=== PATIENT | male | born 1985 | race Caucasian/White ===

== ENCOUNTER 2019-01-23 05:15 | Inpatient (IN) ==
[2019-01-23] MEDS ORDERED: ALBUT/IPRATROP 3MG/0.5MG NEB 3 ML VIAL NEB ONE ×2 (05:35→05:36)
[2019-01-23] MEDS ORDERED: methylPREDNISolone 125 MG/2 ML VIAL IV STA (05:36)
[2019-01-23] MEDS ORDERED: MAGNESIUM SULFATE 1GM / D5W BAG IV ONE (06:01)
--- NOTE | 2019-01-23 06:15 | XRay Report ---
XR chest 1V portable CLINICAL HISTORY: asthma attack dyspnea COMPARISON STUDY: No previous studies for comparison. FINDINGS: The bones soft tissues and hemidiaphragms are normal. The cardiomediastinal silhouette is n ormal. The lungs are clear. The pulmonary vasculature is normal. IMPRESSION: Negative chest. The above report was generated using voice recognition software. It may contain grammatical, syntax or spelling errors. Electronically signed by: Jay Montes M.D. 01/23/2019 6:14 AM
[2019-01-23 06:37] LABS: Basophils # (auto) 0.02 K/uL (0-0.2); Basophils % (auto) 0.1 %; Eosinophils # (auto) 1.45 K/uL (0-0.5); Eosinophils % (auto) 10.2 %; Hematocrit (blood only) 44.8 % (42-52); Hemoglobin 15.9 g/dL (14.0-18.0); Immature Granulocytes # (auto) 0.05 K/uL (0.00-0.02); Immature Granulocytes % (auto) 0.4 %; Lymphocytes # (auto) 2.78 K/uL (1.2-3.4); Lymphocytes % (auto) 19.6 %; Mean Corpuscular Hgb Conc 35.5 g/dL (32-36); Mean Corpuscular Volume 87.8 fL (80-100); Mean Platelet Volume 9.9 fL (7.4-10.4); Monocytes # (auto) 1.07 K/uL (0.11-0.59); Monocytes % (auto) 7.6 %; Neutrophils # (auto) 8.78 K/uL (1.4-6.5); Neutrophils % (auto) 62.1 %; Platelet Count 240 K/uL (130-400); RDW Coefficient of Variation 13.5 % (11.5-14.5); RDW Standard Deviation 43.8 fL (36.4-46.3); White Blood Count 14.15 K/uL (4.8-10.8)
[2019-01-23 06:45] LABS: BUN Creatinine Ratio 18.9 (10-20); Calcium 8.7 mg/dl (8.5-10.1); Creatinine Clr Calc Pharmacy 121.5 ml/min; Est GFR (Non-African American) 117.4; Potassium 4.4 mmol/L (3.5-5.1)
--- NOTE | 2019-01-23 07:02 | Emergency Department Note ---
Entered by Missy Bello acting as a scribe for Felipa Melchor DO History of Present Illness General Chief complaint: Asthma Stated complaint: ASTHMA ATTACK Time Seen by Provider: 01/23/19 05:21 Source: patient Limitations: no limitations History of Present Illness Onset (ago): hour(s) 6 Location: chest Severity: similar to prior episodes Pain Consistency: + constant Maximum Pain Intensity: 0 Quality: + other (difficulty breathing, wheezing) Relieved By: + none Associated symptoms: no fever/chills The patient is a 33 year old male who presents to the ED complaining of constant difficulty breathing that began last evening around 2300. He reports that he was doing well throughout the day yesterday, but he began wheezing in the evening. The patient states that this is similar to previous episodes of asthma attacks. He denies any fevers or chills. The patient notes that he used a nebulizer and inhaler [employer], but neither provided significant relief. He reports that he has a history of asthma, stating that he has had it since he was a child. The patient notes that he has been intubated once within the past year, ventilated, and hospitalized about 2 months ago for asthma exacerbation. He states that he's been using Claritin and nasal spray to help with the symptoms. The patient denies taking any steroids recently. He denies any other health problems. Home Medications Home Medications Medication Instructions Recorded Confirmed Type albuterol sulfate 1 puff INHALATION Q6H PRN 01/23/19 01/23/19 History Allergies Allergy/AdvReac Type Severity Reaction Status Date / Time No Known Allergies Allergy Unverified 01/23/19 05:31 Past Med/Surg History Medical History Asthma Asthma exacerbation Social History Feels Safe at Home: Yes Smoking Status: Current every day smoker Review of Systems See HPI for pertinent positives & negatives. and A total of 10 systems reviewed and were otherwise negative Physical Exam Vital Signs Vital Signs - 24 hr 01/23/19 05:20 01/23/19 05:25 01/23/19 05:31 Temperature 36.6 C Temperature Source Oral Sepsis Recent Fever Within 48 Hours No Sepsis Action Taken by Nursing No Action Required Pulse Rate 105 H 99 H 104 H Pulse Rate [Right Finger] Pulse Rate from SpO2 Sensor 104 H Respiratory Rate 24 19 19 Respiratory Effort / Characteristics Spontaneous Accessory Muscle Use Short of Breath SOB on Exertion Blood Pressure 131/90 129/95 132/81 Blood Pressure Mean 103 106 98 Blood Pressure Position Sitting Pulse Oximetry 92 95 94 Oxygen Delivery Method Room Air Room Air Nebulizer Oxygen Flow Rate 7 01/23/19 05:37 01/23/19 06:01 01/23/19 06:10 Temperature Temperature Source Sepsis Recent Fever Within 48 Hours Sepsis Action Taken by Nursing Pulse Rate 106 H 133 H Pulse Rate [Right Finger] 103 H Pulse Rate from SpO2 Sensor 109 H 132 H Respiratory Rate 15 19 24 Respiratory Effort / Characteristics Spontaneous Blood Pressure 142/101 H Blood Pressure Mean 114 Blood Pressure Position Pulse Oximetry 97 99 99 Oxygen Delivery Method Room Air Nebulizer Oxygen Flow Rate 7 01/23/19 06:31 Temperature Temperature Source Sepsis Recent Fever Within 48 Hours Sepsis Action Taken by Nursing Pulse Rate 98 H Pulse Rate [Right Finger] Pulse Rate from SpO2 Sensor 99 H Respiratory Rate 21 Respiratory Effort / Characteristics Blood Pressure 114/78 Blood Pressure Mean 90 Blood Pressure Position Pulse Oximetry 98 Oxygen Delivery Method Nebulizer Oxygen Flow Rate 7 HEENT: Head - normocephalic and atraumatic Pupils are equal, round, and reactive to light. Extraocular eye muscles are intact, and sclera are anicteric. Nose - moist nasal mucosa without discharge. Mouth - moist buccal mucosa. Oropharynx is nonerythematous and there is no tonsillar exudate or edema noted. Neck: Supple; no cervical lymphadenopathy or nuchal rigidity Heart: Tachycardic rate and regular rhythm. There is a normal S1 and S2 with no murmurs, clicks, or gallops appreciated. Lungs: Diffuse inspiratory and expiratory wheezes. Abdomen: Soft, completely nontender, nondistended, with good bowel sounds. There are no palpable pulsatile masses or hepatosplenomegaly. There is no guarding, rigidity, or rebound noted. Extremities: No evidence of cyanosis, clubbing, or edema. There are easily palpable peripheral pulses. Skin: warm and dry with good turgor and no rashes. Course 0531: The patient was evaluated in room A03. A complete history and physical exam was performed. An IV lock was initiated and labs were drawn as above. The patient was observed on the cardiac specialist and pulse oximeter. 0535: Duoneb 12 ml NEB 0536: Solumedrol 125 mg IV. A portable chest x-ray was obtained. 0559: I reevaluated the patient. He was diaphoretic and in respiratory distress. 0601: Magnesium Sulfate/ D5w 2 gm IV 0616: I checked on the patient, and he looked slightly better. His oxygen saturation was 98%. 0634: I spoke with Dr. Stark, [facility] brew house supervisor, about the patient's case. 0639: I spoke with Dr. Rees, [facility] hospitalist, about the patients case. He will further evaluate the patient. Consultations Consultation #1: I spoke with Dr. Stark, [facility] brew house supervisor, about the patient's case. Time: 06:34 Consultation #2: I spoke with Dr. Rees, [facility] hospitalist, about the patients case. He will further evaluate the patient. Time: 06:39 Administered Medications Discontinued Medications Albuterol (Duoneb) 12 ml NEB ONE ONE Stop: 01/23/19 05:36 Last Admin: 01/23/19 05:36 Dose: 12 ml Documented by: [id number] Albuterol (Duoneb) 12 ml NEB ONE ONE Stop: 01/23/19 05:37 Last Admin: 01/23/19 05:43 Dose: Not Given Documented by: [id number] Magnesium Sulfate/Dextrose (Magnesium Sulfate / D5w) Confirm Administered Dose 2 gm IV .STK-MED ONE Stop: 01/23/19 06:02 Last Admin: 01/23/19 06:22 Dose: 2 gm Documented by: [id number] Methylprednisolone (Solumedrol) 125 mg IV NOW STA Stop: 01/23/19 05:37 Last Admin: 01/23/19 05:39 Dose: 125 mg Documented by: [id number] Medical Decision Making Differential Diagnosis The differential diagnosis includes: asthma exacerbation, bronchitis, pneumonia, and seasonal allergies. Medical Records Attestation: I reviewed the patient's medical records. Home Medications Current Medication List: was personally reviewed by me Laboratory Data Result diagrams: 01/23/19 05:30 01/23/19 05:30 Lab Results 01/23/19 01/23/19 Range/Units 05:30 05:30 WBC 14.15 H (4.8-10.8) K/uL RBC 5.10 (4.7-6.1) M/uL Hgb 15.9 (14.0-18.0) g/dL Hct 44.8 (42-52) % MCV 87.8 (80-100) fL MCH 31.2 (25-34) pg MCHC 35.5 (32-36) g/dL RDW Std Deviation 43.8 (36.4-46.3) fL RDW Coeff of Martha 13.5 (11.5-14.5) % Plt Count 240 (130-400) K/uL MPV 9.9 (7.4-10.4) fL Immature Gran % (Auto) 0.4 % Neut % (Auto) 62.1 % Lymph % (Auto) 19.6 % Metcalfe % (Auto) 7.6 % Eos % (Auto) 10.2 % Baso % (Auto) 0.1 % Immature Gran # (Auto) 0.05 H (0.00-0.02) K/uL Neut # (Auto) 8.78 H (1.4-6.5) K/uL Lymph # (Auto) 2.78 (1.2-3.4) K/uL Metcalfe # (Auto) 1.07 H (0.11-0.59) K/uL Eos # (Auto) 1.45 H (0-0.5) K/uL Baso # (Auto) 0.02 (0-0.2) K/uL Sodium 140 (136-145) mmol/L Potassium 4.4 (3.5-5.1) mmol/L Chloride 107 (98-107) mmol/L Carbon Dioxide 28 (21-32) mmol/L Anion Gap 5.0 (3-11) BUN 15 (7-18) mg/dl Creatinine 0.80 (0.6-1.4) mg/dl Est Cr Clr Drug Dosing 121.5 ml/min Est GFR ( Amer) 136.0 Est GFR (Non-Af Amer) 117.4 BUN/Creatinine Ratio 18.9 (10-20) Glucose 100 H (70-99) mg/dl Calcium 8.7 (8.5-10.1) mg/dl Imaging Data Attestation: I personally reviewed and interpreted this imaging study as foll ows: My Impression: XR CHEST 1V: No obvious pneumothorax. Narrow mediastinum. No pulmonary infiltrates. Blood Pressure Blood Pressure Findings: Elevated blood pressure Blood Pressure Disposition: further management by hospitalist EFREN Narrative The patient is a 33 year old male who presents to the ED complaining of difficulty breathing that began last evening around 2300. The patient has a long history of asthma with 3 previous intubations and ICU stays at other hospitals. The patient believes that the pollen/seasonal allergies may have triggered this episode. He tried using his nebulizer and inhalers at home with no relief. Upon presentation, O2 saturations are stable but the patient's respiratory rate was near 60. He had severe in-store next Tory wheezing. He did get some relief with a DuoNeb and solu Medrol. He then became increasingly short of breath again and was given 2 g of IV magnesium which did seem to help his symptoms. Chest x-ray was performed which showed no evidence of pneumothorax or other pulmonary infiltrates. I discussed the case with the brew house supervisor as well as the hospitalist and they will evaluate the patient for further care. Impression & Plan Asthmaticus, status Critical Care Time I have personally spent 60 minutes of critical care time in the direct management of this patient. This includes bedside care, interpretation of diagnostic studies, and testing, discussion with consultants, patient, and family members, and other required patient management activities. This 60 minutes is in excess of all separately billable procedures. Critical Care Time: Yes Total Critical Care Time: 60 Discharge Plan Visit Data Chief Complaint: Asthma Stated Complaint: ASTHMA ATTACK ED Provider: Felipa Melchor Discharge Problem: Asthmaticus, status Patient Disposition: Being Evaluated by Hospitalist Forms Stand Alone Forms: My [facility] [employer] Prescriptions Prescriptions: No Action albuterol sulfate 90 mcg/actuation Hfa Aerosol Inhaler 1 puff INHALATION Q6H PRN (Reason: asthma) RF: 0 Referrals Referrals: PCP,NO [Primary Care Provider] - Discharge Problem: Asthmaticus, status Qualifiers: Asthma severity: unspecified severity Asthma persistence: unspecified Qualified Code(s): J45.902 - Unspecified asthma with status asthmaticus The scribe's documentation has been prepared under my direction and personally reviewed by me in its entirety. I confirm that the note above accurately reflects all work, treatment, procedures, and medical decision making performed by me.
--- NOTE | 2019-01-23 07:14 | History & Physical Report ---
Date of Service January 23, 2019 Assessment & Plan (1) Admitted to intensive care unit: Patient is admitted to the intensive care unit with status asthmaticus, history of [address] Stark is consulted. Present on Admission?: Yes (2) Asthmaticus, status: Patient received Solu-Medrol 25 mg IV in the ED, magnesium sulfate 2 g IV, and a continuous DuoNeb treatment. Admit to the ICU: Solu-Medrol 60 mg IV every 6 hours. Duonebs every 4 hours while awake and every 2 hours when necessary. Benadryl 50 mg IV every 6 hours. Famotidine 20 mg IV every 12 hours. Nasal cannula oxygen titrated to keep pulse ox greater than or equal to 95%. NSS + KCl 20 mEq at 125 mils per hour Present on Admission?: Yes History of Present Illness Chief Complaint: Patient presents to the emergency department due to status asthmaticus, with severely labored breathing. Primary Care Provider: NO PCP The patient is a 33-year-old male visiting from out of town, with a past medical history of severe asthma, with intubations x3, who presented in severe status asthmaticus. Chest x-ray was performed, emergent laboratories have been ordered and are pending, and patient is presently getting a continuous nebulizer treatment. Per ED staff, he has improving somewhat with treatment at this point, and is able to talk to me in complete sentences. Dr. Castillo-CANDI has contacted Dr. Sosa today from ICU, and he has agreed to accept the patient to the ICU. The patient reports that he has significant history of allergies, and has been having trouble dealing with the pollen since he arrived in [place] [facility]. Allergies Allergy/AdvReac Type Severity Reaction Status Date / Time No Known Allergies Allergy Unverified 01/23/19 05:31 Home Medications Home Medications Medication Instructions Recorded Confirmed Type albuterol sulfate 1 puff INHALATION Q6H PRN 01/23/19 01/23/19 History Past Med/Surg History Medical History Asthma Asthma exacerbation Social History Feels Safe at Home: Yes Smoking Status: Current every day smoker Review of Systems Review of Systems: The patient denies chest pain, cough, lower extremity swelling, sore throat, fevers, chills, sweats, weight change, fatigue, nausea, vomiting, diarrhea , constipation, abdominal pain, pelvic pain, blood in urine or stool, dysuria, urinary frequency or urgency, lightheadedness, dizziness, headache, memory loss, loss of consciousness, rash, abnormal bruising or bleeding, imbalance, focal or generalized weakness, numbness or tingling in arms or legs, generalized arthralgias or myalgias, back or neck pain, or night sweats. The review of systems is otherwise negative other than for that already noted above, and at least 10 systems have been reviewed. Physical Exam Physical Exam: The patient is awake, alert and oriented 3, well developed and well nourished, normocephalic and atraumatic, lying in bed and in moderate respiratory distress. HEENT--PERRL, EOMI, mucous membranes and oropharynx dry. Neck--supple. No JVD. No bruits. Thyroid normal, trachea midline, no adenopathy. Heart-tachycardic and regular, no murmurs rubs or gallops. Lungs--respiratory wheezes and and expiratory wheezes bilaterally, with few coarse rhonchi, lungs are overall still very tight, mild accessory muscle use. Abdomen--normal bowel sounds and soft. Nontender. Nondistended, no hernias or masses, no organomegaly. Extremities--no cyanosis or clubbing. No edema. There are good distal pulses b/l. Dermatologic--normal skin turgor, normal color, no abnormal lymph nodes, no rash. Neurologic--cranial nerves II through XII grossly intact. Rheumatologic--normal range of motion. Psychiatric--normal affect. Results & Data Vital Signs (Past 12 Hours) Vital Signs Temp Pulse Pulse Resp BP Pulse Ox 01/23/19 06:31 98 H 21 114/78 98 01/23/19 06:10 133 H 24 99 01/23/19 06:01 106 H 19 142/101 H 99 01/23/19 05:37 103 H 15 97 01/23/19 05:31 104 H 19 132/81 94 01/23/19 05:25 99 H 19 129/95 95 01/23/19 05:20 97.9 F 105 H 24 131/90 92 Laboratory Results Laboratory Results WBC 14.15 K/uL (4.8-10.8) H 01/23/19 05:30 RBC 5.10 M/uL (4.7-6.1) 01/23/19 05:30 Hgb 15.9 g/dL (14.0-18.0) 01/23/19 05:30 Hct 44.8 % (42-52) 01/23/19 05:30 MCV 87.8 fL (80-100) 01/23/19 05:30 MCH 31.2 pg (25-34) 01/23/19 05:30 MCHC 35.5 g/dL (32-36) 01/23/19 05:30 RDW Std Deviation 43.8 fL (36.4-46.3) 01/23/19 05:30 RDW Coeff of Martha 13.5 % (11.5-14.5) 01/23/19 05:30 Plt Count 240 K/uL (130-400) 01/23/19 05:30 MPV 9.9 fL (7.4-10.4) 01/23/19 05:30 Immature Gran % (Auto) 0.4 % 01/23/19 05:30 Neut % (Auto) 62.1 % 01/23/19 05:30 Lymph % (Auto) 19.6 % 01/23/19 05:30 Terry % (Auto) 7.6 % 01/23/19 05:30 Eos % (Auto) 10.2 % 01/23/19 05:30 Baso % (Auto) 0.1 % 01/23/19 05:30 Immature Gran # (Auto) 0.05 K/uL (0.00-0.02) H 01/23/19 05:30 Neut # (Auto) 8.78 K/uL (1.4-6.5) H 01/23/19 05:30 Lymph # (Auto) 2.78 K/uL (1.2-3.4) 01/23/19 05:30 Terry # (Auto) 1.07 K/uL (0.11-0.59) H 01/23/19 05:30 Eos # (Auto) 1.45 K/uL (0-0.5) H 01/23/19 05:30 Baso # (Auto) 0.02 K/uL (0-0.2) 01/23/19 05:30 Sodium 140 mmol/L (136-145) 01/23/19 05:30 Potassium 4.4 mmol/L (3.5-5.1) 01/23/19 05:30 Chloride 107 mmol/L (98-107) 01/23/19 05:30 Carbon Dioxide 28 mmol/L (21-32) 01/23/19 05:30 5.0 (3-11) 01/23/19 05:30 BUN 15 mg/dl (7-18) 01/23/19 05:30 0.80 mg/dl (0.6-1.4) 01/23/19 05:30 Est Cr Clr Drug Dosing 121.5 ml/min 01/23/19 05:30 Est GFR ( Amer) 136.0 01/23/19 05:30 Est GFR (Non-Af Amer) 117.4 01/23/19 05:30 18.9 (10-20) 01/23/19 05:30 Glucose 100 mg/dl (70-99) H 01/23/19 05:30 Calcium 8.7 mg/dl (8.5-10.1) 01/23/19 05:30 Diagnostic Findings [place], [place] [phone] XRay Report Patient: José Luis GUAN Date: 01/23/19 MR#: [id number]: Acct ID:[id number]: Date: 1985[facility] Zip: Age: 33Location: ED Sex: M Room/Bed: Att Phy: Diagnosis: ASTHMA ATTACK Roseanne Phy: PCP,NO Service Date: 01/23/19 [facility] Phy: Interpreting Phy: Jay Montes MD Admit Phy: Ordering Phy: Felipa Melchor D.O. cc: ~ XR chest 1V portable CLINICAL HISTORY: asthma attack dyspnea COMPARISON STUDY: No previous studies for comparison. FINDINGS: The bones soft tissues and hemidiaphragms are normal. The cardiomediastinal silhouette is normal. The lungs are clear. The pulmonary vasculature is normal. IMPRESSION: Negative chest. The above report was generated using voice recognition software. It may contain grammatical, syntax or spelling errors. Electronically signed by: Jay Montes M.D. 01/23/2019 6:14 AM Dictated: 01/23/19612 Transcribed: 01/23/19612 Code Status & VTE Plan Code Status Full code VTE Prophylaxis Plan VTE Prophylaxis will be ordered: Yes Critical Care Time Critical Care Time: Yes Total Critical Care Time: 40 Prolonged Care Time Total Time: Total critical care time was 40 minutes (1) Asthmaticus, status Asthma persistence: unspecified Asthma severity: unspecified severity Qualified Code(s): J45.902 - Unspecified asthma with status asthmaticus
[2019-01-23] MEDS ORDERED: ICU PROTOCOL FOR HYPERGLYCEMIA PRN (08:53)
[2019-01-23] MEDS: NSS + 20MEQ KCL 20 MEQ/1,000 ML BAG IV SCH ×2 (09:19→17:27)
[2019-01-23] MEDS: DiphenhydrAMINE HCL 50 MG/ML VIAL IV SCH ×3 (09:19→20:21)
[2019-01-23] MEDS: FAMOTIDINE 20 MG in SYRINGE 3 ML IV SCH ×2 (09:19→20:17)
[2019-01-23] MEDS ORDERED: ALBUTEROL 0.5% NEB SOLN 2.5 MG/0.5 ML VIAL NEB PRN (10:10)
--- NOTE | 2019-01-23 10:35 | Pulmonary Consultation ---
Date of Consultation January 23, 2019 Assessment & Plan (1) Asthmaticus, status: Impression: 1. Status asthmaticus. In a patient with poorly controlled asthma. 2. Chronic persistent asthma. 3. Allergic rhinitis. 4. Nicotine addiction. Plan: 1. Given his criteria with multiple admissions to the hospital and intubation 4 months ago due to status asthmaticus, I will start the patient on Solu-Medrol 125 mg every 6 hours. 2. Obtain peak flow twice daily. He should be more than 70% of his predicted. 3. Continue with DuoNeb every 4 hours. And albuterol as needed every 2 hours. 4. Add Symbicort 2 puffs twice daily. 5. Add Sudafed 60 mg every 8 hours p.o. 6. Continue with Flonase and Singulair. 7. Obtain urine toxicology. 8. Noted that the patient has significant eosinophilia, concerns for eosinophilic bronchitis should be considered. 9. Obtain IgE level. Thank you, will follow. Asthma persistence: unspecified Asthma severity: unspecified severity Qualified Code(s): J45.902 - Unspecified asthma with status asthmaticus History of Present Illness Reason for Consultation: Status asthmaticus Requesting Physician: Dr. Hawkins Attending Physician: Cam Hawkins MD. History of Present Illness Dear Dr. Hawkins: Thank you for the kind referral Mr. Sheridan to pulmonary service. This is a 33-year-old gentleman with history of asthma since childhood, active smoker, works in construction infrequently, resides in [place] and he is visiting in [place], has been having frequent asthma exacerbations with most recent intubation 4 months ago, presented to the hospital with increasing shortness of breath, the patient has been using only albuterol as needed in addition to albuterol in nebulizer, he does have seasonal allergies that has been treated with Claritin and Flonase. He is not using any long-acting beta agonist, inhaled corticosteroids, does not check his peak flow, does not seem to be well educated about his illness although he has been intubated 3 times during his lifetime. His symptoms lasted for the past 24 hours with increasing shortness of breath and tightness, feeling pain extending from his chest to his neck, he denies any heartburn, but it started after nasal congestion postnasal drip that he noticed as well. No family history of asthma, he does have significant allergies but none mentioned in the chart, he could not afford allergy testing according to him. The patient was started on Solu-Medrol and received along nebulized treatment of albuterol, he started feeling much better, he is off oxygen on room air, was admitted to the hospital for further management. Allergies Allergy/AdvReac Type Severity Reaction Status Date / Time No Known Allergies Allergy Unverified 01/23/19 05:31 Home Medications Home Medications Medication Instructions Recorded Confirmed Type albuterol sulfate 1 puff INHALATION Q6H PRN 01/23/19 01/23/19 History Patient History Medical History Asthma Asthma exacerbation Social History Preferred Language: Ghanaian Communication Ability: Effective Priming Powder Premix Blender Required: No Beliefs That Will Affect Care: None Current Living Situation: Family Other Information That Helps Us Care for You: No Feels Safe at Home: Yes Safety Concerns: Feels Safe At This Time Smoking Status: Light tobacco smoker Tobacco Type: cigarettes Cigarettes Per Day: 1-2 Do You Dip or Chew Tobacco: No Second Hand Exposure: No Tobacco Cessation Education Requested by Patient: No Hx Alcohol Use: No Hx Substance Use: No Review of Systems Review of Systems: Review of system apart from the above was unremarkable, he denies any syncope, near syncopal episode, persistent cough, sputum production, no hemoptysis reported. No rash, and no weight loss. The rest of his review of system otherwise was unremarkable. Physical Exam Physical Exam: Vital signs are stable with O2 saturation 95% on room air, nasal congestion, oral mucosa is normal, no stridor, bilateral diffuse wheezing, S1-S2 with slight tachycardia, abdomen is benign, no edema. Neurologically he is intact. And he is in good mood. Results & Data Vital Signs (Past 12 Hours) Vital Signs Temp Pulse Pulse Resp BP BP Pulse Ox 01/23/19 08:30 103 H 18 114/77 95 01/23/19 07:01 87 17 116/74 93 01/23/19 06:31 98 H 21 114/78 98 01/23/19 06:10 133 H 24 99 01/23/19 06:01 106 H 19 142/101 H 99 01/23/19 05:37 103 H 15 97 01/23/19 05:31 104 H 19 132/81 94 01/23/19 05:25 99 H 19 129/95 95 01/23/19 05:20 36.6 C 105 H 24 131/90 92 Laboratory Results Labs were reviewed showing mild leukocytosis, the rest of his CBC and BMP are within normal range. His bicarb is normal and not showing any signs of metabolic acidosis. Diagnostic Findings Chest x-ray was clear. Reviewed personally.
[2019-01-23] MEDS: ALBUT/IPRATROP 3MG/0.5MG NEB 3 ML VIAL INH SCH ×5 (11:16→23:12)
[2019-01-23] MEDS: CETIRIZINE HCL 10 MG TABLET PO SCH (11:30)
[2019-01-23] MEDS: PSEUDOEPHEDRINE HCL 30 MG TAB PO SCH ×2 (11:30→21:26)
[2019-01-23] MEDS: FLUTICASONE PROPIONATE NA SPR 16 GM BTL SCH ×2 (11:30→20:18)
[2019-01-23] MEDS: methylPREDNISolone 125 MG in SYRINGE 0 ML IV SCH ×3 (11:30→23:23)
[2019-01-23] MEDS ORDERED: methylPREDNISolone 60 MG in SYRINGE 0 ML IV SCH (12:00)
--- NOTE | 2019-01-23 18:07 | Hospitalist Progress Note ---
Date of Service January 23, 2019 Assessment & Plan (1) Asthmaticus, status: Patient received Solu-Medrol 25 mg IV in the ED, magnesium sulfate 2 g IV, and a continuous DuoNeb treatment. Admit to the ICU: Solu-Medrol 60 mg IV every 6 hours. Duonebs every 4 hours while awake and every 2 hours when necessary. Benadryl 50 mg IV every 6 hours. Famotidine 20 mg IV every 12 hours. Nasal cannula oxygen titrated to keep pulse ox greater than or equal to 95%. NSS + KCl 20 mEq at 125 mils per hour Subjective Patient states he feels much better than when he was in the ER he is less wheezing he in full sentences he is fatigued and tired from being up most of the night with his asthma exacerbation Review of Systems Review of Systems: ROS: well nourished well developed. No double vision blurry vision No problems with speech or swallowing No palpitations, chest pain or pressure Patient still with shortness of breath and some wheezing No abdominal pain nausea vomiting diarrhea changes in appetite or weight No burning urine urine frequency or changes in color No focal joint pain or muscle pain No skin rashes or oral lesions No unusual bruising or bleeding No focused back pain or numbness or loss of strength No changes in memory or confusion Physical Exam Physical Exam: The patient appeared well nourished and normally developed. Vital signs as documented. Head exam is unremarkable. normocephalic, atraumatic Neck is without jugular venous distension, thyromegaly, or lymphademopathy Lungs are decreased air movement and wheezes heard throughout all lung neil Cardiac exam reveals Rhythm is regular. First and second heart sounds normal. Abdominal exam reveals normal bowel sounds, no masses, no organomegaly Extremities are nonedematous and both pedal pulses are present Neurologic exam is A&Ox3, no focal deficits, strength is equal bilateral Psychologically seems neither anxious or depressed Skin is warm Dry without bruises or lesions Results & Data Vital Signs (Past 12 Hours) Vital Signs Temp Pulse Pulse Resp BP BP Pulse Ox 01/23/19 16:01 82 01/23/19 15:39 86 16 95 01/23/19 15:29 36.8 C 82 18 118/64 95 01/23/19 11:16 95 H 18 97 01/23/19 11:10 37.1 C 83 17 117/64 96 01/23/19 08:30 36.8 C 84 103 H 18 114/77 95 01/23/19 07:01 87 17 116/74 93 01/23/19 06:31 98 H 21 114/78 98 01/23/19 06:10 133 H 24 99 Pulse Ox 01/23/19 16:01 95 01/23/19 15:39 01/23/19 15:29 01/23/19 11:16 01/23/19 11:10 01/23/19 08:30 01/23/19 07:01 01/23/19 06:31 01/23/19 06:10 (1) Asthmaticus, status Asthma persistence: unspecified Asthma severity: unspecified severity Qualified Code(s): J45.902 - Unspecified asthma with status asthmaticus
[2019-01-23] MEDS: BUDESONIDE/FORMOTEROL FUMARATE 160/4.5 60 PUFFS/INHALER INH SCH (20:19)
[2019-01-23] MEDS ORDERED: MONTELUKAST SODIUM 10 MG TABLET PO SCH (21:00)
[2019-01-24] MEDS: NSS + 20MEQ KCL 20 MEQ/1,000 ML BAG IV SCH ×2 (01:09→09:21)
[2019-01-24] MEDS: ALBUT/IPRATROP 3MG/0.5MG NEB 3 ML VIAL INH SCH ×2 (03:32→07:08)
[2019-01-24] MEDS: DiphenhydrAMINE HCL 50 MG/ML VIAL IV SCH ×2 (03:49→10:11)
[2019-01-24] MEDS: methylPREDNISolone 125 MG in SYRINGE 0 ML IV SCH (05:07)
[2019-01-24] MEDS: PSEUDOEPHEDRINE HCL 30 MG TAB PO SCH (05:07)
[2019-01-24 06:26] LABS: Basophils # (auto) 0.01 K/uL (0-0.2); Eosinophils # (auto) 0.01 K/uL (0-0.5); Hematocrit (blood only) 40.8 % (42-52); Hemoglobin 13.9 g/dL (14.0-18.0); Immature Granulocytes # (auto) 0.07 K/uL (0.00-0.02); Immature Granulocytes % (auto) 0.3 %; Lymphocytes # (auto) 0.85 K/uL (1.2-3.4); Lymphocytes % (auto) 4.1 %; Mean Corpuscular Hgb Conc 34.1 g/dL (32-36); Mean Corpuscular Volume 88.5 fL (80-100); Monocytes # (auto) 0.44 K/uL (0.11-0.59); Monocytes % (auto) 2.1 %; Neutrophils # (auto) 19.23 K/uL (1.4-6.5); Neutrophils % (auto) 93.5 %; Platelet Count 210 K/uL (130-400); RDW Coefficient of Variation 13.4 % (11.5-14.5); RDW Standard Deviation 43.8 fL (36.4-46.3); Red Blood Count 4.61 M/uL (4.7-6.1); White Blood Count 20.61 K/uL (4.8-10.8)
[2019-01-24 06:39] LABS: Partial Thromboplastin Time 26.1 Seconds (21.0-31.0); Prothrombin Time 10.6 Seconds (9.0-12.0)
[2019-01-24 06:55] LABS: Alanine Aminotransferase 24 U/L (12-78); Albumin Level 3.1 gm/dl (3.4-5.0); Aspartate Aminotransferase 11 U/L (15-37); Bilirubin Direct < 0.1 mg/dl (0-0.2); Blood Urea Nitrogen 17 mg/dl (7-18); Calcium 8.6 mg/dl (8.5-10.1); Carbon Dioxide 23 mmol/L (21-32); Chloride 109 mmol/L (98-107); Creatinine Clr Calc Pharmacy 127.7 ml/min; Est GFR (African American) 138.9; Est GFR (Non-African American) 119.9; Glucose 124 mg/dl (70-99); Potassium 4.6 mmol/L (3.5-5.1); Sodium 137 mmol/L (136-145)
[2019-01-24 06:58] LABS: Alkaline Phosphatase 58 U/L (45-117); Bilirubin,Total 0.4 mg/dl (0.2-1); Phosphorus 2.7 mg/dl (2.5-4.9); Total Protein 6.2 gm/dl (6.4-8.2)
[2019-01-24] MEDS: BUDESONIDE/FORMOTEROL FUMARATE 160/4.5 60 PUFFS/INHALER INH SCH (09:21)
[2019-01-24] MEDS: FLUTICASONE PROPIONATE NA SPR 16 GM BTL SCH (09:21)
[2019-01-24] MEDS: CETIRIZINE HCL 10 MG TABLET PO SCH (09:22)
[2019-01-24] MEDS: FAMOTIDINE 20 MG in SYRINGE 3 ML IV SCH (09:22)
--- NOTE | 2019-01-24 10:10 | Pulmonology Progress Note ---
Date of Service January 24, 2019 Assessment & Plan (1) Asthmaticus, status: Impression: 1. Status asthmaticus. In a patient with poorly controlled asthma. 2. Chronic persistent asthma. 3. Allergic rhinitis. 4. Nicotine addiction. Plan: 1. The patient peak flow was 450, his 70% predicted is around 370. He is in the green zone. 2. Given the fact I do not have his diurnal variation, I would change his steroids to prednisone 40 mg p.o. twice daily. Continue for the next 7 days until he sees his heel attacher wood in [place]. 3. Continue with DuoNeb 4 times daily at home. 4. Continue Symbicort 2 puffs twice daily even at home. 5. Discontinue Sudafed upon discharge. 6. Continue with Flonase and Singulair. 7. Obtain urine toxicology. 8. The patient claims he had allergy testing in the past, but the levels were too high to account for IgG antibody specific injections. I instructed him to return to pulmonary clinic or allergy clinic in [place]. 9. IgG level is pending. 10. the patient encouraged to stop smoking. 11. Although he was advised to stay in the hospital for other day, he would like to be discharged home. He can with the above instructions. 12. Discussed with Dr. Rodriguez, appreciate his input. Thank you, will follow as needed. Asthma persistence: unspecified Asthma severity: unspecified severity Qualified Code(s): J45.902 - Unspecified asthma with status asthmaticus Subjective The patient is feeling better, he wants to go home, he continues to have occasional wheezing, no chest pain reported, he is ambulatory by himself on room air. No distress. Review of Systems Review of Systems: Review of system otherwise was unremarkable. Physical Exam Physical Exam: Vital signs are stable, S1-S2 regular rate and rhythm, lungs are distant clear to my exam, abdomen is benign, no edema, no oral thrush. Neurologically he is intact. He had normal gait. Results & Data Vital Signs (Past 12 Hours) Vital Signs Temp Pulse Pulse Resp BP Pulse Ox 01/24/19 07:45 37.0 C 109 H 18 145/77 H 95 01/24/19 07:11 87 16 98 01/24/19 04:00 36.8 C 76 20 127/68 96 01/24/19 01:27 85 01/23/19 23:24 36.5 C 81 20 116/54 L 97 Laboratory Results Leukocytosis secondary to steroids, IgE is pending, urine tox is pending. Diagnostic Findings No new imaging.
--- NOTE | 2019-01-24 15:30 | Discharge Summary ---
Date of Service January 24, 2019 Admission HPI Per Admitting Provider The patient is a 33-year-old male visiting from out of town, with a past medical history of severe asthma, with intubations x3, who presented in severe status asthmaticus. Chest x-ray was performed, emergent laboratories have been ordered and are pending, and patient is presently getting a continuous nebulizer treatment. Per ED staff, he has improving somewhat with treatment at this point, and is able to talk to me in complete sentences. Dr. Castillo-CANDI has contacted Dr. Sosa today from ICU, and he has agreed to accept the patient to the ICU. The patient reports that he has significant history of allergies, and has been having trouble dealing with the pollen since he arrived in town. Principal Diagnosis asthma exacerbation Discharge Exam Constitutional well developed and average body habitus Eyes no conjunctival abnormality and no scleral abnormality Neck normal visual inspection and trachea midline Respiratory normal respiratory effort; no respiratory distress Auscultation: lungs clear to auscultation bilaterally Cardiovascular RRR, no murmur, no edema Discharge Data Allergies Allergy/AdvReac Type Severity Reaction Status Date / Time No Known Allergies Allergy Unverified 01/23/19 05:31 Consultations 01/23/19 06:40 ED Decision to Admit Stat 01/23/19 08:53 Consult Case Management - Discharge Planning Routine 01/23/19 09:13 Consult Pulmonology Routine Hospital Course (1) Asthmaticus, status: greatly improved , will be on home tapring steroids, and resume home inahlers and maintenance medicine Total Time Total Time Spent Total Time Spent (In Minutes): greater than 30 minutes were required to prepare discharge Discharge Plan Discharge Items Patient Disposition: Home - Self-Care Reason For Visit: ACUTE ASTHMA EXACERBATION Discharge Diagnosis: asthma exacerbation Discharge Goals: Decrease discomfort and Diagnostic testing Activity: Resume your previous activity Non-emergency contact: Primary Care Provider Call non-emergency contact if: you have any medication questions Follow-up/Referrals: PCP,NO [Primary Care Provider] - Diet: Regular Addtl Provider Instructions: please follow up with Primary care please take prednisone tapering dose may get over the counter loratadine or cetirizine please stop smoking Prescriptions: New fluticasone propionate 50 mcg/actuation [place],Suspension 2 spry NA Q12 Qty: 1 RF: 0 Symbicort 160-4.5 mcg/actuation Hfa Aerosol Inhaler 2 puff inhalation BID Qty: 1 RF: 0 prednisone 20 mg tablet 20 mg PO UD Qty: 40 RF: 0 Continued albuterol sulfate 90 mcg/actuation Hfa Aerosol Inhaler 1 puff INHALATION Q6H PRN (Reason: asthma) RF: 0 Stand-Alone Forms: [employer]/Other Patient Handouts: Asthma, Triggers Asthma Discharge Orders: Discharge Order (Routine); Ordered 01/24/19 Ordered By: Florentin Rodriguez Admission Data Admit Date/Time: 01/23/19 07:45 Attending Provider: Florentin Rodriguez Admit Provider: Hedy Stark Primary Care Provider: PCP,LALI Other Providers: Cam Rees Anas Service: Telemetry Other Interventions: Discharge Summary Assessment (RN) Last Done: 01/24/19 10:35 DC Date/Time DO NOT enter until pt leaves facility: 01/24/19 10:53
[2019-01-27 03:31] LABS: Amphetamines, Ur NEGATIVE NG/ML (CUTOFF=500); Amphetemines Ur GC/MS DNR NG/ML (CUTOFF=250); Barbiturates, Urine NEGATIVE NG/ML (CUTOFF=300); Benzodiazepines,Ur NEGATIVE NG/ML (CUTOFF=100); Cocaine, Urine NEGATIVE NG/ML (CUTOFF=150); Cocaine,Ur GC/MS DNR NG/ML (CUTOFF=100); Methadone, Ur GC/MS DNR NG/ML (CUTOFF=100); Methadone, Urine NEGATIVE NG/ML (CUTOFF=100); Opiates, Urine NEGATIVE NG/ML (CUTOFF=100); Phencyclidine, Ur NEGATIVE NG/ML (CUTOFF=25); Phencyclidine,Ur GC/MS DNR NG/ML (CUTOFF=25)
== END 2019-01-24 10:53 | disposition home or self-care (01) | DRG 203 ==
LOC: ED 05:15 → 2E 07:45 → SUATTDRO 07:45 → 2E 08:07